=== PATIENT | male | born 1990 | race Caucasian/White ===

== ENCOUNTER 2019-07-26 22:54 | Emergency (ER) | payer OTHER ==
[~2019-07-26] VITALS: Ht 180.3 cm; Wt 81.7 kg
== END 2019-07-27 00:44 | disposition home or self-care (01) ==
LOC: ED 22:54
DX: N13.2 Hydronephrosis with renal and ureteral calculous obstruction (principal); F17.200 Nicotine dependence, unspecified, uncomplicated
CPT/HCPCS: 74176; 80053; 81001; 83690; 83735; 85025; 96361; 96374; 96375; 99284-25; J1170; J1885; J2405; J7030

== ENCOUNTER 2024-09-26 12:59 | Emergency (ER) | payer OTHER ==
[~2024-09-26] VITALS: Ht 180.3 cm; Wt 80.1 kg
[2024-09-26] MEDS ORDERED: LIDOCAINE 2% (VISCOUS) HCL 15 ML UDC MT ONE ×2 (13:30→13:45)
[2024-09-26] MEDS ORDERED: HYDROCODON-ACE1 EA11 PO (13:39)
[2024-09-26 14:49] VITALS: BP 134/79
== END 2024-09-26 14:49 | disposition home or self-care (01) ==
LOC: ED 12:59
DX: S50.312A Abrasion of left elbow, initial encounter (principal); S60.512A Abrasion of left hand, initial encounter; S70.211A Abrasion, right hip, initial encounter; F43.10 Post-traumatic stress disorder, unspecified; F17.200 Nicotine dependence, unspecified, uncomplicated; V29.99XA Rider (driver) (passenger) of other motorcycle injured in unspecified traffic accident, initial encounter
CPT/HCPCS: 96372; 99283; J1171